=== PATIENT | female | born 1965 | race Caucasian/White ===

== ENCOUNTER → 2019-05-24 | Day surgery (SDC) | payer OTHER ==
[~2019-05-24] MED LIST: AMLODIPINE BESY10 MG PO; CYMBALTA30 MG PO; FENTANYL CITRATE/PF 100MCG/2 ML INJ ONE; GABAPENTIN400 MG PO; HYOSCYAMINE 0.125 MG TAB ONE; LISINOPRIL-HCT1 EACH PO; MIDAZOLAM HCL 5 MG/ML VIAL ONE; MUCINEX DM ER1 EACH PO; PROPOFOL IV EMULSION 10 MG/ML 20 ML VIAL ONE; PROPOFOL IV EMULSION 10 MG/ML 50 ML VIAL ONE; TYLENOL WITH C1 EACH PO
--- OUTSIDE RECORDS SUMMARY | 2019-05-24 12:29 | XMS REPORT ---
Author Author Admin, Townsend Organization Unknown Address Unknown Phone Unavailable PROBLEMS Condition Status Date Provider Notes Screening exam for breast cancer active Berlondrimary OlveraRivera Colon cancer screening active Berlondrika Rivera Screening, diabetes mellitus active Berlondrika Rivera Screening for cardiovascular condition active Berlondrika Rivera Back pain with radiculopathy active Berlondrika Rivera Osteoarthritis active Berlondrika Rivera Spinal stenosis active Berlondrika Rivera Establish care or get acquainted visit active Berlondrika Rivera BMI 40.0-44.9 active Berlondrika Rivera MORBID OBESITY active Berlondrika Rivera ENCOUNTERS Date Type Provider Location Encounter Diagnosis - Ambulatory Encounter [facility] Desktop [facility] - Ambulatory En[facility]ond[facility] En[facility] Bere Alvarezrika Rivera Berlondrika Rivera [facility] MORBID OBESITYBMI 40.0-44.9Establish care or get acquainted visitSpinal stenosisOsteoarthritisBack pain with radiculopathyScreening for cardiovascular conditionScreening, diabetes mellitusColon cancer screeningScreening exam for breast cancer VITAL SIGNS Date Observation Value Provider oxygen saturation, oximetry 95 % Rinku Padilla " method used to obtain blood pressure automatic Rinku Padilla " Blood Pressure Position 01 sitting Rinku Padilla " blood pressure, site #1 left arm Rinku Padilla " blood pressure, diastolic 71 mm[Hg] Rinku Padilla " blood pressure, systolic 107 mm[Hg] Rinku Padilla " respiratory rate E&M 14 /min Rinku Padilla " pulse rate E&M 73 /min Rinku Padilla " temperature site oral Rinku Padilla " temperature E&M 98.9 [degF] Rinku Padilla " weight E&M 288.40 lbs. Rinku Padilla " weight in kilograms E&M 131.09 kg Rinku Padilla " height E&M 68 [in_i] Rinku Padilla " height in centimeters E&M 172.72 cm Rinku Padilla Allergies No Known Allergy Information REASON FOR REFERRAL Start Date - End Date Service - Pain Management - External - Mammogram - Screening - Colonoscopy, Screening - External RESULTS Date Observation Value Provider Reference Range Interpretation Location hemoglobin A1C, blood, as % of total hemoglobin 7.8 % [facility] 4.8-5.6 High " LDL cholesterol, serum TRIGHI mg/dL [facility] 0-99 " very low density lipoproteins VLDLCH mg/dL [facility] 5-40 " HDL cholesterol, serum 35 mg/dL [facility] >39 Low " triglyceride, serum, fasting 520 mg/dL [facility] 0-149 High " cholesterol, serum 224 mg/dL [facility] 100-199 High " alanine aminotransferase (SGPT), serum 19 1/L [facility] 0-32 " aspartate aminotransferase (SGOT), serum 21 1/L [facility] 0-40 " alkaline phosphatase, serum 69 1/L [facility] 39-117 " bilirubin, serum, total <0.2 mg/dL [facility] 0.0-1.2 " albumin/globulin ratio, serum 1.5 [facility] 1.2-2.2 " globulin, serum 2.9 [facility] 1.5-4.5 " albumin, serum 4.4 g/dL [facility] 3.8-4.9 " protein, total, serum 7.3 g/dL [facility] 6.0-8.5 " calcium, serum 9.6 mg/dL [facility] 8.7-10.2 " carbon dioxide, venous blood 23 mmol/L [facility] 20-29 " chloride, serum 100 mmol/L [facility] 96-106 " potassium, serum 4.0 mmol/L [facility] 3.5-5.2 " sodium, serum 140 mmol/L [facility] 134-144 " urea nitrogen/creatinine ratio, serum 30 [facility] 9-23 High " eGFR if 126 mL/min/((173/100).m2) [facility] >59 " Estimated Glomerular Filtration Rate (calc) 110 mL/min/((173/100).m2) [facility] >59 " creatinine, serum 0.54 mg/dL [facility] 0.57-1.00 Low " urea nitrogen, blood 16 mg/dL [facility] 6-24 " blood glucose, random 106 mg/dL [facility] 65-99 High " immature granulocytes, percentage of total cells, blood 0 % [facility] Not Estab. " basophil count, absolute 0.0 x10E3/uL [facility] 0.0-0.2 " Eosinophil Absolute Count 0.1 X10E3/UL [facility] 0.0-0.4 " monocyte count, blood, automated 0.8 X10E3/UL [facility] 0.1-0.9 " lymphocyte count, blood, automated 4.9 X10E3/UL [facility] 0.7-3.1 High " Absolute Neutrophils 7.4 X10E3/UL [facility] 1.4-7.0 High " basophils as percent of blood leukocytes 0 % [facility] Not Estab. " eosinophils as percent of blood leukocytes 1 % [facility] Not Estab. " monocytes as percent of blood leukocytes 6 % [facility] Not Estab. " lymphocytes as percent of blood leukocytes 37 % [facility] Not Estab. " neutrophils as percent of blood leukocytes 56 % [facility] Not Estab. " platelet count 424 X10E3/UL [facility] 150-450 " red blood cell distribution width 14.4 % [facility] 11.7-15.4 " mean corpuscular hemoglobin concentration, RBC 33.7 G/DL [facility] 31.5-35.7 " mean corpuscular hemoglobin, RBC 29.9 pg [facility] 26.6-33.0 " mean corpuscular volume, RBC 89 fL [facility] 79-97 " hematocrit, blood 40.1 % [facility] 34.0-46.6 " hemoglobin, blood 13.5 g/dL [facility] 11.1-15.9 " erythrocyte (RBC) count 4.51 X10E6/UL [facility] 3.77-5.28 " leukocyte count, blood 13.2 X10E3/UL [facility] 3.4-10.8 High HISTORY OF IMMUNIZATIONS No Information Available HISTORY OF MEDICATION USE Medication Instructions Dates Provider Comments LISINOPRIL-HYDROCHLOROTHIAZIDE 20-12.5 MG ORAL TABLET Take two tabs By Mouth Every Day Halie Phillip AMLODIPINE BESYLATE 10 MG ORAL TABLET Take one tab By Mouth Every Day Halie Phillip GABAPENTIN 300 MG ORAL CAPSULE Take one capsule By Mouth Three Times a Day Halie Phillip DULOXETINE HCL 60 MG ORAL CAPSULE DELAYED RELEASE PARTICLES Take one capsule By Mouth Every Day Halie Phillip ACETAMINOPHEN-CODEINE #3 300-30 MG ORAL TABLET Please take 1 tablet every 12 hr as needed for pain Leighton Stafford SOCIAL HISTORY Date Observation Value Provider sexual orientation Heterosexual Rinku Padilla " sex at Female Rinku Padilla " Occupation #1 Disabled Rinku Padilla " patient considered to be homeless No Rinku Padilla " drug use, illicit Never Rinku Padilla " alcohol use Never Rinku Padilla " is there any chance that you could be ? No Rinku Padilla " passive cigarette smoke exposure No Rinku Padilla " smoking status former smoker Leighton Stafford " Exercise Program Referral T Rinku Padilla " Weight Management Counseling Provided T Rinku Padilla " Nutrition intervention T Rinku Padilla FUNCTIONAL STATUS No Information Available MENTAL STATUS Date Observation Value Provider assessment of judgment and insight E&M intact Leighton Stafford " mental status examination: orientation E&M oriented to time, place, and person Leighton Stafford " assessment of mood and affect E&M anxious Leighton Stafford " Generalized Anxiety Disorder Questionnaire - Question 2 0 Rinku Padilla " Generalized Anxiety Disorder Questionnaire - Question 1 0 Rinku Padilla MEDICAL EQUIPMENT No Information Available FAMILY HISTORY No Information Available INSURANCE PROVIDERS No Information Available ADVANCE DIRECTIVES No Information Available TREATMENT PLAN Date Name Hemoglobin A1c Lipid Panel Comp. Metabolic Panel (14) CBC With Differential/Platelet - Reason for referral: chronic back pain s/p spinal surgeries Requesting Dr. Trent Hernandez of [facility] Sp[facility] and Pain specialist Max. # of visits: Gold Card Y/N? - - colon ca screening Nurse/Nurse Coordinator New Patient Detailed - [id number] HISTORY OF PROCEDURES No Information Available GOALS No Information Available HEALTH CONCERNS No Information Available
--- OUTSIDE RECORDS SUMMARY | 2019-05-24 12:29 | XMS REPORT ---
Author Author Admin, Romeo Organization Unknown Address Unknown Phone Unavailable PROBLEMS Condition Status Date Provider Notes Screening exam for breast cancer active Leighton Stafford Colon cancer screening active Berlondrimary OlveraRivera Screening, diabetes mellitus active Berjannndrimary OlveraRivera Screening for cardiovascular condition active Berlondrimary OlveraRivera Back pain with radiculopathy active Berlondrika Rivera Osteoarthritis active Berlondrika Rivera Spinal stenosis active Berlondrika Rivera Establish care or get acquainted visit active Berjannndrimary OlveraRivera BMI 40.0-44.9 active Berlondrika Rivera MORBID OBESITY active Berlondrika Rivera ENCOUNTERS Date Type Provider Location Encounter Diagnosis - Ambulatory Encounter Berjannndrimary Bhagatndrika Rivera [facility]K - Ambulatory Encounter [facility] Support Desktop [facility] UNK - Ambulatory Encounter Berjannndrimary Bhagatndrika Rivera [facility]K - Ambulatory Encounter Berjannndrimary Stafford Berlondrika Rivera [facility] UNK - Ambulatory Encounter Bere Cookka Rivera Berlondrika Rivera Padilla [facility] MORBID OBESITYBMI 40.0-44.9Establish care or get acquainted [...] " height in centimeters E&M 172.72 cm Riknu Padilla Allergies No Known Allergy Information REASON [...] spinal surgeries Requesting Dr. Trent Hernandez of [facility] Spine and Pain specialist Max. # of visits: Gold Card Y/N? - - colon ca screening Nurse/Nurse Coordinator New Patient Detailed - [id number] HISTORY OF PROCEDURES No Information Available GOALS No Information Available HEALTH CONCERNS No Information Available
--- OUTSIDE RECORDS SUMMARY | 2019-05-24 12:30 | XMS REPORT ---
Author Author Admin, Timpson Organization Unknown Address Unknown Phone Unavailable PROBLEMS Condition Status Date Provider Notes Screening exam for breast cancer active Berlondrika Rivera Colon cancer screening active Berlondrika Rivera Screening, [...] Provider Location Encounter Diagnosis - [facility]ulatory [facility] - [facility] - [facility]ulatory [facility]counter [facility] - [facility]ulatory [facility]counter [facility] - Ambulatory Encounter Berlondrika Rivera Berlondrika Rivera [facility] - Ambulatory Encounter [facility] Support Desktop [facility] UNK - Ambulatory Encounter Leighton Manzanares [facility] - Ambulatory Encounter Leighton Manzanares [facility] - Ambulatory Encounter Bere Manzanares [place] Leighton RiveraFloyd Padilla [facility] MORBID OBESITYBMI 40.0-44.9Establish care or get acquainted visitSpinal stenosisOsteoarthritisBack pain with radiculopathyScreening for cardiovascular conditionScreening, diabetes mellitusColon cancer screeningScreening exam for breast cancer VITAL SIGNS Date Observation Value Provider oxygen saturation, oximetry 95 % Rinku Padilla " method used to obtain blood pressure automatic Rinku Padilla " Blood Pressure Position 01 sitting Rinku Padilla " blood pressure, site #1 left arm iRnku Padilla " blood pressure, diastolic 71 mm[Hg] [...] Rinku Padilla " Occupation #1 Disabled Rinku Husseina " patient considered to be homeless No [...] spinal surgeries Requesting Dr. Trent Hernandez of [facility] Sp[facility] and Pain specialist Max. # of visits: Gold Card Y/N? - - colon ca screening Nurse/Nurse Coordinator New Patient Detailed - [id number] HISTORY OF PROCEDURES No Information Available GOALS No Information Available HEALTH CONCERNS No Information Available
[2019-05-24 15:57] VITALS: BP 131/84
--- NOTE | 2019-05-24 21:56 | Operative Report ---
DATE OF PROCEDURE: 05/24/2019 SURGEON: Mu Espinosa MD PROCEDURE: Colonoscopy with polypectomy. INDICATIONS FOR COLONOSCOPY: Colorectal cancer screening. MEDICATIONS: The patient was done under MAC, please see anesthesiologist's note. PROCEDURE IN DETAIL: With the patient in left lateral decubitus position, a flexible fiberoptic Olympus colonoscope was inserted into the rectum with ease and advanced all the way to the cecum. Prep overall was suboptimal with some retained stools in the colon. The scope was then withdrawn slowly. Whatever was visualized, the mucosa overlying the cecum and ascending colon appeared to be within normal limits. Approximately 8 mm sessile polypoid lesion in the proximal transverse colon was removed per snare electrocautery. The rest of the transverse appeared to be within normal limits. Some diverticular disease was noted in the descending and the sigmoid. One polyp was hot biopsied in the distal rectum. The scope was then retroflexed into the distal rectum and small internal hemorrhoids were noted, none of which was actively bleeding. The scope was then straightened out, it was subsequently withdrawn. The patient tolerated the procedure well. Some small perianal warts were noted on the way out. IMPRESSION: 1. Suboptimal prep. 2. Transverse colon polyp, approximately 8 mm sessile, removed per snare electrocautery. 3. Diverticulosis. 4. Rectal polyp, hot biopsied. 5. Internal hemorrhoids. 6. Small perianal warts. PLAN: Follow up histology. Initiate high-fiber, low-fat diet. Initiate high-fiber supplement. The patient might benefit from a followup colonoscopy in 1 year. Mu Espinosa MD [facility] [place]/[facility] /[id number]
== END | disposition home or self-care (01) ==
LOC: OR 12:26
PROVIDERS: ATTEND Internal Medicine Gastroenterology
DX: Z12.11 Encounter for screening for malignant neoplasm of colon (principal); D12.3 Benign neoplasm of transverse colon; K62.1 Rectal polyp; K64.8 Other hemorrhoids; R13.19 Other dysphagia; R14.0 Abdominal distension (gaseous); K62.5 Hemorrhage of anus and rectum; B07.8 Other viral warts; M54.5 Low back pain; G47.33 Obstructive sleep apnea (adult) (pediatric); I10 Essential (primary) hypertension; F32.9 Major depressive disorder, single episode, unspecified; Z01.810 Encounter for preprocedural cardiovascular examination; Z68.41 Body mass index [BMI] 40.0-44.9, adult; Z87.891 Personal history of nicotine dependence; Z86.73 Personal history of transient ischemic attack (TIA), and cerebral infarction without residual deficits; Z80.0 Family history of malignant neoplasm of digestive organs
CPT/HCPCS: 45385; 81025; 93005; J2250; J3010